=== PATIENT | female | born 1945 | race Caucasian/White ===

== ENCOUNTER 2016-12-08 05:00 | Inpatient (IN) | payer OTHER ==
--- NOTE | ~2016-12-08 | CO ---
Unit #: [id number] #: [id number] Patient: JAMAL BOWERS [id number] [facility]. [place], [place] [address] [id number] I MR#: [id number] NAME: JAMAL BOWERS ROOM: CIC3 Age: 71 Sex: F Admission Date: 12/08/2016 : 1945 Attending Physician: Mat Cabrera M.D. Primary Care Physician: Jamal Mcdowell Consultation Date: 12/08/2016 CONSULTATION REPORT REASON FOR CONSULTATION Status post arrest, respiratory failure. HISTORY OF PRESENT ILLNESS A 71-year-old female, apparent history of severe COPD and ongoing active tobacco use, was actually at [facility] in [place], admitted November 23 to November 30. Apparently, had COPD exacerbation, respiratory failure, was sent home on oxygen. Family is unavailable but from the report I get from nursing, she continued to smoke. She became more lethargic. Apparently, the family was driving her to [facility] when she quit breathing. EMS was called. Again, history is taken from the EHR but apparently, EMS took 10 minutes to arrive, 20 minutes before arriving at [facility]. Apparently, she did have a pulse upon arrival but the estimated downtime without circulation somewhere in the range of 30 minutes. At this point, she is in the intensive care unit relatively stable, off pressors, unresponsive, and has startle myoclonus. PAST MEDICAL HISTORY Remarkable for COPD. ALLERGIES No known medical allergies. HOME MEDICATIONS Per EHR: 1. Spiriva. 2. Dulera. 3. Mucinex. 4. Apparently, had been on a Medrol Dosepak and a nebulizer. FAMILY HISTORY Unavailable. SOCIAL HISTORY Unavailable. She apparently is a chronic smoker. REVIEW OF SYSTEMS Unavailable. PHYSICAL EXAMINATION GENERAL: Reveals a patient who is unresponsive. VITAL SIGNS: She is afebrile. Pulse 84, respiratory rate 18, blood pressure 122/85. Height 5 foot 3 inches, weight 108 pounds. HEENT: Pupils are small, sluggish but they do have reaction. She is Unit #: [id number] #: [id number] Patient: JAMAL BOWERS unresponsive, orally intubated. Head is atraumatic. NECK: Supple. No supraclavicular or cervical adenopathy appreciated. CHEST: Equal breath sounds. There is no wheeze, stridor, consolidation. CARDIAC: Reveals regular rate and rhythm. No pathologic murmur, rub, or gallop. ABDOMEN: Soft, nontender. No hepatomegaly, rebound. EXTREMITIES: Reveal no clubbing, cyanosis, or edema. No calf tenderness. She has some bruising on her left foot which apparently is old. She has reasonable capillary blush. Her skin is somewhat cool but no rash or diaphoresis. NEUROLOGIC: She did have some spontaneous respirations when placed on CPAP. She otherwise was unresponsive. DIAGNOSTIC STUDIES LABORATORY: Arterial blood gas: Currently pH 7.48, pCO2 of 48, pO2 of 52 on assist control 18, tidal volume of 540, 30%, 5 of PEEP. BUN is 20, creatinine 0.5. LFTs mildly elevated. BNP 53. Troponin 0.1. INR normal. White blood cell count 16.7, hemoglobin 14.9, platelet count 115,000. Sputum Gram stain: No organisms, many white cells. IMAGING: Chest x-ray: COPD, breast implants. ET tube in adequate position. No pneumonia. EKG: No acute ischemic changes. IMPRESSION 1. Status post arrest, likely secondary to her severe chronic obstructive pulmonary disease. 2. Anoxic brain injury. 3. 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 4. Underlying chronic obstructive pulmonary disease, suspect severe. 5. Apparent active tobacco use. 6. Elevated liver function tests. PLAN 1. Mechanical ventilatory support. 2. Check EEG. 3. Rule out myocardial infarction. 4. ICU prophylaxis. 5. Doubt pneumonia, so I will discontinue Levaquin. 6. I will check a urine for UA and C and S and monitor closely. 7. Overall, prognosis is grave. Hopefully, family will present and we can discuss long-term plan. Dictated by... yMnor Mcbride M.D. RUDDY/rosa TD: 12/08/2016 09:31 JOB #: [id number] CC: Jamal Mcdowell Aprn Unit #: [id number] #: [id number] Patient: JAMAL BOWERS CONSULTATION REPORT Page 1 of 1 X Mynor Mcbride MD X CONSULTATION REPORT
--- NOTE | ~2016-12-08 | CR72 ---
[facility] A Service of [facility] RADIOLOGY TEXT RESULTS PATIENT: JAMAL BOWERS LOCATION: [address] : [birth year] UNIT #: [id number] AGE: [address]: Mat Cabrera MD SEX: F ORDER DR: [id number] [facility] [address] [place], [place] [address] [id number] I MR#: [id number] Acc #: [id number] NAME: JAMAL BOWERS : 1945 SEX: F STUDY DATE/TIME: 12/08/2016 4:42 UNIT: [facility] ROOM: [facility] STUDY DESCRIPTION: CR Chest Single View Portable Attending Physician: Shameka Howe M.D. Ordering Physician: Shameka Howe M.D. Primary Care Physician: Jamal Mcdowell MEDICAL IMAGING REPORT This report is preliminary unless electronic signature is present EXAM AP portable chest 12/08/2016 HISTORY Endotracheal tube placement. Shortness of breath today. History of full cardiac arrest. COMPARISON None. FINDINGS ET tube has been placed in satisfactory position in the mid-thoracic trachea, the tip located about 4.2 cm above the rolan. NG tube extends below the diaphragm with tip not included in the field of view. Prominent skin fold artifact projects over the left hemithorax, but pulmonary parenchymal lines are seen extending distal to this. Bilateral breast implants with peripheral capsular calcification noted. Background emphysematous changes are thought to be present. Heart size within normal limits. Diminished height of thoracolumbar vertebral bodies is thought to represent compression deformities, age indeterminate. IMPRESSION 1. Emphysematous changes in the lungs without evidence of acute airspace disease. 2. Prominent skin fold artifact projects over the left lateral thorax. 3. ET tube tip in satisfactory position in mid-thoracic trachea, NG tube extends below the diaphragm. 4. Multiple thoracolumbar compression deformities, age indeterminate. No comparison studies at this institution. Dictated by... Mady Quick M.D. [facility] A Service of [facility] RADIOLOGY TEXT RESULTS PATIENT: JAMAL BOWERS LOCATION: [facility]3-18 : 45 UNIT #: [id number] AGE: [address]: Mat Cabrera MD SEX: F ORDER DR: THIS IS AN ELECTRONICALLY VERIFIED REPORT Mady Quick M.D. at 12/08/2016 9:59 PM LYLA/roxy TD: 12/08/2016 06:34 JOB #: [id number] MEDICAL IMAGING REPORT Page 1 of 1 COPY
--- NOTE | ~2016-12-08 | CO ---
Unit #: [id number] #: [id number] Patient: JAMAL BOWERS [id number] [facility] [address] [place], [place] [address] [id number] I MR#: [id number] NAME: JAMAL BOWERS ROOM: CICCU3 Age: 71 Sex: F Admission Date: 12/08/2016 : 1945 Attending Physician: Mat Cabrera M.D. Primary Care Physician: Jamal Mcdowell Requesting Physician: Shameka Howe M.D. Consultation Date: 12/08/2016 CONSULTATION REPORT REASON FOR CONSULT Anoxic encephalopathy. PATIENT IDENTIFICATION This 71-year-old female evaluated in ICU, room 18, at [place] [facility]. SOURCE OF INFORMATION Obtained from the medical record. HISTORY OF PRESENT ILLNESS This is a 71-year-old female with past medical history of COPD, who presents to [place] [facility] with resuscitated arrest/PEA downtown estimated at approximately 30 to 40 minutes prior to resuscitation. The patient apparently was recently admitted to [facility] last week for COPD exacerbation. Apparently, the day prior to admission she had become short of breath and, apparently, the family was attempting to make arrangements to take the patient to [facility], although those details are not clear. She apparently stopped breathing and EMS was called. EMS arrived within about 10 minutes. The patient was found to be in PEA and CPR was initiated. The patient was intubated en route and apparently arrived to [facility] ER about 20 minutes later. The patient did have a pulse on arrival. The patient was noted to be tachycardiac and also had an elevated WBC count. CT of the head was done at [facility] and is reported as negative for any acute findings. CT angiogram of the chest was reported as negative for pulmonary embolism and the patient was sent to [place] [facility] for further evaluation given concern for anoxic brain injury. The patient is intubated. She is not sedated. She is unresponsive and no family is available at the time of my evaluation. The patient is unable to contribute to her history or review of systems given her mental and physical status. PAST MEDICAL HISTORY COPD. SOCIAL HISTORY Unknown. FAMILY HISTORY Unknown. ALLERGIES No known drug allergies. Unit #: [id number] #: [id number] Patient: JAMAL BOWERS HOME MEDICATIONS 1. Medrol Dosepak. 2. Nebulizer. 3. Spiriva. 4. Mucinex. 5. Dulera. REVIEW OF SYSTEMS Unable to obtain from the patient given her mental and physical status. PHYSICAL EXAMINATION VITAL SIGNS: Temperature 99.6. Pulse 117. Respirations 17. Blood pressure 143/70. Oxygen saturation 98% on the ventilator. Height 5'3". Weight 108 lb. NEUROLOGICAL EXAMINATION MENTAL STATUS EXAM: The patient is intubated. She is not sedated at the time of evaluation. She has some sternal myoclonus, 0/3 eye signs. No response to noxious stimuli other than sternal myoclonus. CRANIAL NERVE EXAM: Again, eyes are conjugate. No ptosis or nystagmus but negative doll's eyes. Pupils are fixed, 2+, nonreactive. Negative corneals. I am unable to evaluate sensation of face or scalp or strength of muscles of facial expression. No asymmetry seen. I am unable to assess tongue, uvula or palate, head turning or shoulder shrug. Neck does appear to be supple. MOTOR EXAM: No response to noxious stimuli other than sternal myoclonus. No posturing seen. No withdrawal seen. SENSORY EXAM: No response to noxious stimuli. GAIT AND ROMBERG: Deferred. REFLEXES: Not elicited. TOES: No response. COORDINATION: Unable to assess. DIAGNOSTIC STUDIES Please see above. LABORATORY: CK 73, troponin 0.09. Sodium 134, potassium 4.3, chloride 94, CO2 27, glucose 221, BUN 20, creatinine 0.5, estimated GFR 97.4, calcium 8, AST 118, ALT (1) , alkaline phosphatase 94, total protein 5.9, albumin 2.9. BNP 53. WBC count 16.7, hemoglobin 14.9, hematocrit 47.1, platelet count 115. PT 11.4, INR 1.1, PTT 29.4. Initial troponin 0.11. CARDIOVASCULAR: EKG shows normal sinus rhythm, right atrial enlargement, rightward axis, pulmonary disease pattern per Cardiology report on 12/08/16. IMPRESSION 1. Anoxic encephalopathy. 2. Status post resuscitated arrest secondary to number three. 3. Severe COPD. 4. 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 5. Tobacco use. 6. Acute respiratory failure secondary to number two. PLAN Case discussed with Dr. Patel who saw the patient at the time of Unit #: [id number] #: [id number] Patient: JAMAL BOWERS consultation. We will reevaluate and discuss with family further. At this time, prognosis is concerning and appears poor given her clinical exam. I recommend repeat followup, discussion with the family regarding goals of care and consider repeat imaging if necessary. Please call for any questions or issues. We thank you very much for allowing us to assist in the care of this patient. Dictated by... Sarah Alegria A.P.R.N. for Monika Lind/phuc TD: 12/09/2016 06:54 JOB #: [id number] CONSULTATION REPORT Page 1 of 1 X Sarah Alegria [employer] X CONSULTATION REPORT
--- NOTE | ~2016-12-08 | HP ---
Unit #: [id number] #: [id number] Patient: JAMAL BOWERS [id number] [address] [address] [id number] Edmundo MR#: [id number] NAME: JAMAL BOWERS ROOM: CIC3 Age: 71 Sex: F Admission Date: 12/08/2016 : 1945 Attending Physician: Shameka Howe M.D. Primary Care Physician: Jamal Mcdowell HISTORY AND PHYSICAL CHIEF COMPLAINT Resuscitated arrest with anoxic encephalopathy. HISTORY This 71-year-old female with COPD, was transferred from [facility] emergency department after a resuscitated arrest. Family is not present, and I obtained most of the history from the ER physician at [facility]. I am told the patient was recently admitted to [facility] last week for COPD exacerbation. Yesterday, she became short of breath, and I believe the family was attempting to take the patient to [facility] but I am unsure. She stopped breathing, EMS was called. It took EMS about ten minutes to arrive. The patient was found to be in PEA. They required an additional 20 minutes before bringing the patient to [facility] ER, as they were performing CPR and intubated the patient. When the patient did arrive to [facility] ER, she did have a pulse on arrival. Therefore, down time without perfusing rhythm was estimated between 30 to 40 minutes. In the emergency department, she was noted to be tachycardic but the rest of her vital signs was negative. Workup was fairly unremarkable except for a mildly elevated white blood count. CT of the head was negative. CTA of the chest was negative for PE. It did show COPD and evidence of bronchitis. Repeat troponin was indeterminate. The patient was given IV fluids, and sent to this facility as she has evidence on examination of extensive anoxic encephalopathy. There is no neurologist at [facility]. PAST MEDICAL HISTORY COPD. ALLERGIES No known drug allergies. HOME MEDICATIONS 1. Medrol Dosepak. 2. Nebulizer. 3. Spiriva. 4. Mucinex. 5. Dulera. FAMILY HISTORY Unknown. SOCIAL HISTORY Also unknown as family is not present. Unit #: [id number] #: [id number] Patient: JAMAL BOWERS REVIEW OF SYSTEMS Impossible to obtain as patient currently is intubated, and only responds to noxious stimuli. PHYSICAL EXAMINATION GENERAL APPEARANCE: 71-year-old female who is unresponsive but does arouse to noxious stimuli with startle myoclonic jerking. VITAL SIGNS: Her O2 saturation is 92% on an FIO2 of 30%, blood pressure 137/67, pulse of 90. HEENT: Pupils are constricted, negative corneals, negative doll's. Pharynx - patient is orally intubated. There is also an NG-tube down the oropharynx with some bloody appearing aspirate. NECK: Supple. CHEST: Clear. CARDIAC: Normal S1 and S2 without murmur. ABDOMEN: Bowel sounds are diminished. Nontender. No distention. No hepatosplenomegaly or masses. EXTREMITIES: Without clubbing, cyanosis or edema. There is some bruising over the left foot. Pedal pulses are present. NEUROLOGIC: The patient is unresponsive but does arouse to noxious stimuli with startle myoclonic jerking, particularly in the face. Toes do not react. The patient is not breathing above the ventilator. No corneals, no doll's but patient's pupils are constricted. She did have a gag reflex according to the ICU nurse. DIAGNOSTIC STUDIES LABORATORY: Labs prior to arrival - hematocrit 46.8, white blood count of 13.1, MCV is 101.3. BNP is 689. Initial troponin negative. Second troponin was 0.029. D-dimer elevated. Coags normal. SMA-12 - glucose is 253, sodium 134, potassium 5.2, chloride 86, albumin is 3, AST 70, ALT 76, magnesium 2.4. Normal CPK. ABG - pH 7.24, pCO2 66.7, pO2 159, O2 saturation 99% on tidal volume 540, SIMV of 14, FIO2 40%, PEEP of 5 with pressure support of 10. IMAGING: CTA of the chest was negative for PE. COPD and changes of bronchitis noted. Gastroccult was heme positive. Head CT - no acute disease. CARDIOVASCULAR: EKG - sinus tachycardia, rate 115, right axis deviation. ASSESSMENT 1. Resuscitated arrest, likely primary pulmonary arrest with initial ABG showing mainly respiratory acidosis. 2. Anoxic encephalopathy with startle myoclonus. 3. Chronic obstructive pulmonary disease, recently admitted to [facility] last week. Will obtain records. 4. Indeterminate troponin following arrest. 5. Blood-tinged NG aspirate. 6. CTA of the chest showing COPD and bronchitis. 7. Poor data base. PLANS Unit #: [id number] #: [id number] Patient: JAMAL BOWERS 1. IV fluids. Recheck all labs. 2. Sputum C and S. 3. Proton pump inhibitor. 4. Request old records. 5. Serial cardiac enzymes. 6. Steroids, Duo-Nebs, antibiotics. 7. Pulmonary and neurology consultation. 8. SCDs for DVT prophylaxis. 9. Will speak with family when they arrive. 10. Prognosis is poor. Dictated by Shameka Howe M.D. AML/df TD: 12/08/2016 05:39 JOB #: [id number] HISTORY AND PHYSICAL Page 1 of 1 X Shameka Howe MD X HISTORY AND PHYSICAL
--- NOTE | ~2016-12-08 | EKG ---
PATIENT: KIM BOWERS UNIT #: [id number] Ventricular Rate: 86 BPM Atrial Rate: 86 BPM P-R Interval: 112 ms QRS Duration: 86 ms Q-T Interval: 356 ms QTC Calculation(Bezet): 426 ms P Cumberland: 87 degrees Calculated R Cumberland: 94 degrees Calculated T Cumberland: 70 degrees Diagnosis Line: Normal sinus rhythm Diagnosis Line: Right atrial enlargement Diagnosis Line: Rightward axis Diagnosis Line: Pulmonary disease pattern Diagnosis Line: Abnormal ECG Diagnosis Line: No previous ECGs available Diagnosis Line: Confirmed by ISIS GILES MD ([id number]) on Diagnosis Line: 12/08/2016 4:37:58 PM INTERPRETING MD: TISHA ALONZO
--- NOTE | ~2016-12-08 | HP ---
Unit #: [id number] #: [id number] Patient: JAMAL BOWERS [id number] [address] [address] [id number] I MR#: [id number] NAME: JAMAL BOWERS ROOM: [facility] Age: 71 Sex: F Admission Date: 12/08/2016 : 1945 Attending Physician: Shameka Howe M.D. Primary Care Physician: Jamal Mcdowell HISTORY AND PHYSICAL ADDENDUM Urine tox screen was negative. Critical care time spent in evaluating this patient was 35 minutes. Dictated by Shameka Howe M.D. AML/df TD: 12/08/2016 05:57 JOB #: [id number] HISTORY AND PHYSICAL Page 1 of 1 X Shameka Howe MD X HISTORY AND PHYSICAL
--- NOTE | ~2016-12-08 | EKG ---
PATIENT: KIM BOWERS UNIT #: [id number] Ventricular Rate: 143 BPM Atrial Rate: 143 BPM P-R Interval: 126 ms QRS Duration: 82 ms Q-T Interval: 278 ms QTC Calculation(Bezet): 429 ms P Raysal: 86 degrees Calculated R Raysal: 116 degrees Calculated T Raysal: 52 degrees Diagnosis Line: Sinus tachycardia with occasional Premature Diagnosis Line: ventricular complexes Diagnosis Line: Right atrial enlargement Diagnosis Line: Right axis deviation Baseline wander Diagnosis Line: Pulmonary disease pattern Diagnosis Line: Abnormal ECG Diagnosis Line: When compared with ECG of 08-DEC-2016 06:16, Diagnosis Line: Premature ventricular complexes are now Present Diagnosis Line: Vent. rate has increased BY 57 BPM Diagnosis Line: Confirmed by GABRIELA VILLARREAL MD ([id number]) on 12/09/2016 Diagnosis Line: 9:41:16 AM INTERPRETING MD: PHIL ALONZO
--- NOTE | ~2016-12-08 | A ---
[facility] Nutrition Therapy DATE: 12/08/16 Patient: KIM BOWERS Physician: CIERA Address: [address] [facility] Room/Bed: [address], Zip: [place] [address] Admit Date: 12/08/16 Date of : [birth year] Height: 5 3 Weight: 108 49 NUTRITIONAL ASSESSMENT: REASON: NPO in ICU 71 yo female admitted for cardiac arrest, anoxic injury PMH: COPD Anthropometrics: Ht: 5'3" Wt: 49.1 kg (108#) BMI: 19.2 Labs: Na+ 134, Cl- 94, Gluc 221, Creat 0.5, Ca++ 8.0, Alb 2.9, AST 118, ALT 156, POC 208 Meds: Protonix, Solu-medrol, NaCl I/O & Bowel function: 133/105, last BM 5/ (diarrhea) Skin Integrity: Scabbed intact areas (R buttock), bruising (L foot), no edema noted Estimated Nutrition Needs: 7540-6447 kcal (25-30 kcal/kg) 74-98 g protein (1.5-2.0 g/kg) Assessment: Chart reviewed, events noted. Pt had a cardiac arrest and went to [facility] ER. Pt thought to have anoxic injury so transferred to [facility]. Pt is currently intubated in ICU. Pt has a OGT on LWS. Pt has elevated blood glucose levels, with questionable family history of DM. Elevated glucose levels may also be d/t medication. Per RN, pt likely has poor prognosis. No family at bedside. See recommendations below. Dx: Inadequate oral intake RT intubation AEB NPO status. Intervention: 1. Enteral nutrition Monitoring, Evaluation and Goals: 1. Enteral nutrition; provide >80% of estimated needs and goal volume x 24 hrs 2. Weight; prevent unintentional weight loss 3. Labs; WNL Recommendations: 1. If appropriate and once medically feasible, initiate enteral nutrition with Jevity 1.5 @ 15 mL/hr + 30 mL prostat BID, advance 10 mL q 6 hrs to goal rate of 35 mL/hr + 30 mL prostat BID. This will provide: 1460 kcal/ 84 g protein/ 638 mL free H2O. [facility] Nutrition Therapy DATE: 12/08/16 Patient: KIM BOWERS Physician: CIERA Address: [address] Room/Bed: [address], Zip: [place] [address] Admit Date: 12/08/16 Date of : [birth year] Height: 5 3 Weight: 108 49 2. Recommend obtaining HgbA1c d/t elevated blood glucose levels. Pt is at a moderate-severe nutritional risk. RD will f/u per protocol. Respectfully, Daiana Mac, Software Engineering Specialist Sarah Martins, HERI, LD [employer] [facility] [employer] cc: client file
--- NOTE | ~2016-12-08 | CR72 ---
[facility] A Service of [facility] RADIOLOGY TEXT RESULTS PATIENT: JAMAL BOWERS LOCATION: [facility] : [birth year] UNIT #: [id number] AGE: [address]: Mat Cabrera MD SEX: F ORDER DR: [id number] [facility] [address] [facility]. [place], [place] [address] [id number] I MR#: [id number] Acc #: [id number] NAME: JAMAL BOWERS : 1945 SEX: F STUDY DATE/TIME: 12/09/2016 3:13 UNIT: [facility] ROOM: [facility] STUDY DESCRIPTION: CR Chest Single View Portable Attending Physician: Mat Cabrera M.D. Ordering Physician: Mynor Mcbride M.D. Primary Care Physician: Jamal Mcdowell MEDICAL IMAGING REPORT This report is preliminary unless electronic signature is present EXAM AP portable chest. DATE 12/09/2016 at 0313 HISTORY Status post arrest, respiratory failure, on ventilator, COPD. Symptoms began 12/08/2016. COMPARISON AP portable chest, 12/08/2016. FINDINGS ET tube, NG tube appear stable. No pneumothorax is seen. Emphysematous changes are present. No definite acute airspace disease is identified. Peripherally calcified bilateral breast implants partially obscure the lung bases. No pleural effusion or pneumothorax is evident. Heart size is stable. Thoracolumbar compression deformities are suspected. IMPRESSION 1. Emphysematous changes but no definite acute airspace disease. 2. Supporting lines and tubes appear stable. No visible pneumothorax. Dictated by... Mady Quick M.D. THIS IS AN ELECTRONICALLY VERIFIED REPORT Mady Quick M.D. at 12/09/2016 10:05 PM [facility] A Service [facility] RADIOLOGY TEXT RESULTS PATIENT: JAMAL BOWERS LOCATION: [facility] : [birth year] UNIT #: [id number] AGE: [address]: Mat Cabrera MD SEX: F ORDER DR: LYLA/lee TD: 12/09/2016 09:50 JOB #: [id number] MEDICAL IMAGING REPORT Page 1 of 1 COPY
--- NOTE | ~2016-12-08 | DS ---
Unit #: [id number] #: [id number] Patient: JAMAL BOWERS [id number] [facility] [address] [facility]. [place], [place] [address] [id number] MR#: [id number] NAME: JAMAL BOWERS ROOM: [facility] Age: 71 Sex: F Admission Date: 12/08/2016 : 1945 Discharge Date: 12/09/2016 Attending Physician: Mat Cabrera M.D. Primary Care Physician: Jamal Mcdowlel DISCHARGE SUMMARY SUMMARY DATE OF December 09, 2016 at 1533. REASON FOR ADMISSION Resuscitated arrest with resultant anoxic encephalopathy. HISTORY OF PRESENT ILLNESS/HOSPITAL COURSE Please see H and P for complete details. The patient was subsequently transferred to [facility]. She was placed on vent support. Consultations were placed to wardrobe supervisor. Dr. Mcbride and associates continued to follow the patient as well as Dr. Patel in regard to anoxic encephalopathy. Patient did not require any sedation through her hospital course. She had minimal gag reflex. She had no reflexes. No withdrawal to pain. She was not responsive. Pupils remained constricted throughout hospital course. Ultimately, patient's prognosis was dismal secondary to her prolonged time that she was down. On December 09, 2016, after the patient's was apprised of the overall prognosis which was dismal, he requested to withdraw care and subsequently patient's care was withdrawn. She breathed several times, perhaps one to two times, and she subsequently after ventilator was discontinued. Overall and unfortunately her prognosis was very poor from the outset and the patient's was very well aware initially. FINAL REASON FOR 1. Anoxic encephalopathy with downtown approximately 30-45 minutes. 2. Status post resuscitated arrest. 3. Prior history of end-stage chronic obstructive pulmonary disease. 4. Acute hypoxic respiratory failure. Dictated by... Mat Cabrera M.D. PEDRO PABLO/rosa TD: 12/12/2016 09:40 Unit #: [id number] #: [id number] Patient: JAMAL BOWERS JOB #: [id number] DISCHARGE SUMMARY Page 1 of 1 X Mat Cabrera MD DISCHARGE SUMMARY
--- NOTE | ~2016-12-08 | EE ---
Unit #: [id number] #: [id number] Patient: KIM BOWERS [id number] [address] [address] [id number] MR#: [id number] NAME: KIM BOWERS : 1945 SEX: F STUDY DATE/TIME: 12/08/2016 UNIT: [facility] ROOM: [facility] STUDY DESCRIPTION: EEG Attending Physician: Mat Cabrera M.D. Referring Physician: Mat Cabrera M.D. NEURODIAGNOSTICS REPORT EXAM EEG. REASON FOR THE STUDY Cardiac arrest, jerking activity, rule out seizures or status. EEG DESCRIPTION This is an inpatient, portable, digitally recorded, multi montage adult EEG with leads placed according to the International 10/20 System. Hyperventilation and photic stimulation were not done. This EEG was of very low amplitude, almost flat. There was some muscle activity and later on sedation was given and it showed some burst suppression pattern with suppression lasting sometimes more than eight seconds. Nothing suggesting reactivity. Nothing suggesting interictal discharges or clinical events. Hyperventilation and photic stimulation were not done. IMPRESSION Abnormal EEG showing burst suppression-type pattern. It could be seen with metabolic causes, anoxia, hypoxia, or medications. Nothing suggesting seizure or status, so clinical correlation is recommended. Dictated by... Monika Lind/jada TD: 12/09/2016 21:52 JOB #: [id number] NEURODIAGNOSTICS REPORT Page 1 of 1 X Indigo Patel MD NEURODIAGNOSTICS REPORT
[2016-12-08 05:08] LABS: ARTERIAL BLOOD GAS CARBOXY HB 0.9 %sat (0.0-9.0); ARTERIAL BLOOD GAS HCO3 35.5 mmol/L; ARTERIAL BLOOD GAS MET HB 0.7 %sat (0.0-2.0); ARTERIAL BLOOD GAS PCO2 47.6 mmHg (35.0-45.0); ARTERIAL BLOOD GAS pH 7.481 (7.350-7.450)
[2016-12-08 05:09] LABS: ARTERIAL BLOOD GAS ALLEN TEST NORMAL; ARTERIAL BLOOD GAS ART SITE RIGHT RADIAL; ARTERIAL BLOOD GAS DELIVERY VENT; ARTERIAL BLOOD GAS PO2 52.5 mmHg (80.0-100); ARTERIAL BLOOD GAS VENT MODE AC; ARTERIAL DRAW? YES
[2016-12-08 05:34] LABS: BASOPHIL# 0.1 X10e3 (0-0.3); BASOPHIL% 0.4 % (0-2.5); HEMATOCRIT 47.1 % (35.0-45.0); HEMOGLOBIN 14.9 gm/dL (12.0-16.0); LYMPHOCYTE# 0.3 X10e3 (1.0-3.5); LYMPHOCYTE% 1.6 % (17.0-45.0); MEAN CELL VOLUME 92.8 FL (83-96); MEAN CORPUSCULAR HEMOGLOBIN 29.3 PG (28-34); MEAN CORPUSCULAR HGB CONC 31.6 g/dL (30-36); MEAN PLATELET VOLUME 9.3 FL (6.5-11.5); MONOCYTE# 0.8 X10e3 (0-1.0); MONOCYTE% 4.7 % (3.0-12.0); NEUTROPHIL# 15.6 X10e3 (1.5-7.1); NEUTROPHIL% 93.3 % (40-75); PLATELET COUNT 115 X10e3 (140-420); RED BLOOD COUNT 5.07 X10e (3.90-5.30); RED CELL DISTRIBUTION WIDTH 14.8 % (11.0-15.5); WHITE BLOOD COUNT 16.7 X10e3 (4.0-10.5)
[2016-12-08 05:36] LABS: DIFF IND YES
[2016-12-08 05:49] LABS: INR 1.1; PARTIAL THROMBOPLASTIN TIME 29.4 SECONDS (23.5-31.3); PROTHROMBIN TIME (PATIENT) 11.4 SECONDS (9.6-11.5)
[2016-12-08 05:57] LABS: ANISOCYTOSIS SL; PLATELET ESTIMATE DECREASED (NORMAL)
[2016-12-08 05:58] LABS: ALBUMIN SERUM 2.9 g/dL (3.5-5.0); BILIRUBIN,TOTAL 0.6 mg/dL (0.2-2.0); CREATININE SERUM 0.5 mg/dL (0.6-1.4); GLOM FILT RATE Estimated 97.4 mL/min (>60); POTASSIUM 4.3 mmol/L (3.5-5.1); PROTEIN TOTAL SERUM 5.9 g/dL (6.0-8.3)
[2016-12-08 06:19] LABS: %MB 8.7 % (0.0-4.0); MB 6.9 ng/ml
[2016-12-08 13:19] LABS: MB 4.4 ng/ml
[2016-12-08 14:42] LABS: URINE APPEARANCE CLEAR; URINE BILIRUBIN NEG (NEG); URINE BLOOD 3+ (NEG); URINE COLOR DK YELLOW; URINE GLUCOSE NEG (NEG); URINE KETONE TRACE (NEG); URINE LEUKOCYTE ESTERASE TRACE (NEG); URINE NITRATE NEG (NEG); URINE PROTEIN 2+ (NEG); URINE SPECIFIC GRAVITY 1.037 (1.003-1.035)
[2016-12-08 14:44] LABS: URBCS1 AUWI 100-200 /[HPF] (0-2); URINE BACTERIA AUWI NEG (NEGATIVE); URINE SQUAMOUS EPITHELIAL CELL FEW /[HPF]
[2016-12-09 04:33] LABS: ARTERIAL BLD GAS O2 SATURATION 96.4 % (90.0-100.0); ARTERIAL BLOOD GAS CARBOXY HB 0.6 %sat (0.0-9.0); ARTERIAL BLOOD GAS HCO3 30.3 mmol/L; ARTERIAL BLOOD GAS PCO2 47.8 mmHg (35.0-45.0); ARTERIAL BLOOD GAS PO2 94.7 mmHg (80.0-100); ARTERIAL BLOOD GAS pH 7.411 (7.350-7.450)
[2016-12-09 04:36] LABS: ARTERIAL BLOOD GAS ALLEN TEST NORMAL; ARTERIAL BLOOD GAS ART SITE RIGHT RADIAL; ARTERIAL BLOOD GAS DELIVERY VENT; ARTERIAL BLOOD GAS VENT MODE AC; ARTERIAL DRAW? YES
[2016-12-09 05:52] LABS: BASOPHIL% 0.1 % (0-2.5); HEMATOCRIT 40.5 % (35.0-45.0); LYMPHOCYTE# 0.4 X10e3 (1.0-3.5); LYMPHOCYTE% 3.2 % (17.0-45.0); MEAN CELL VOLUME 92.3 FL (83-96); MEAN CORPUSCULAR HEMOGLOBIN 29.2 PG (28-34); MEAN CORPUSCULAR HGB CONC 31.7 g/dL (30-36); MEAN PLATELET VOLUME 10.1 FL (6.5-11.5); MONOCYTE# 0.8 X10e3 (0-1.0); MONOCYTE% 5.9 % (3.0-12.0); NEUTROPHIL# 11.6 X10e3 (1.5-7.1); NEUTROPHIL% 90.8 % (40-75); RED BLOOD COUNT 4.39 X10e (3.90-5.30); RED CELL DISTRIBUTION WIDTH 15.1 % (11.0-15.5); WHITE BLOOD COUNT 12.7 X10e3 (4.0-10.5)
[2016-12-09 05:56] LABS: ALBUMIN SERUM 2.6 g/dL (3.5-5.0); BILIRUBIN,TOTAL 0.2 mg/dL (0.2-2.0); CALCIUM SERUM 7.9 mg/dL (8.4-10.2); CREATININE SERUM 0.5 mg/dL (0.6-1.4); GLOM FILT RATE Estimated 97.4 mL/min (>60); MAGNESIUM 1.7 mg/dL (1.6-3.0); PHOSPHOROUS 1.9 mg/dL (2.5-4.6); POTASSIUM 3.7 mmol/L (3.5-5.1); PROTEIN TOTAL SERUM 5.5 g/dL (6.0-8.3)
[2016-12-09 06:18] LABS: %MB 2.7 % (0.0-4.0)
[2016-12-09 06:22] LABS: HEMOGLOBIN 12.8 gm/dL (12.0-16.0)
[2016-12-09 06:23] LABS: DIFF IND YES; PLATELET COUNT 99 X10e3 (140-420)
[2016-12-09 06:37] LABS: ANISOCYTOSIS SL; PLATELET ESTIMATE DECREASED (NORMAL)
== END 2016-12-09 15:33 | disposition expired | DRG 208 ==
LOC: CICCU3 05:00
PROVIDERS: Internal Medicine
PROC: 5A1945Z Respiratory Ventilation, 24-96 Consecutive Hours (ICD-10-PCS; principal; 2016-12-08)
PROC: 0BH17EZ Insertion of Endotracheal Airway into Trachea, Via Natural or Artificial Opening (ICD-10-PCS; 2016-12-08)
DX: J96.21 Acute and chronic respiratory failure with hypoxia (principal); R40.20 Unspecified coma; G93.1 Anoxic brain damage, not elsewhere classified; R56.9 Unspecified convulsions; Z68.1 Body mass index [BMI] 19.9 or less, adult; J96.22 Acute and chronic respiratory failure with hypercapnia; F17.210 Nicotine dependence, cigarettes, uncomplicated; J44.9 Chronic obstructive pulmonary disease, unspecified; R79.89 Other specified abnormal findings of blood chemistry; G25.3 Myoclonus; R94.5 Abnormal results of liver function studies
CPT/HCPCS: 36600; 71010; 80053; 81003; 82550; 82553; 82803; 82947; 83735; 83880; 84100; 84484; 85025; 85610; 85730; 87070; 87086; 87205; 93005; 94002; 94003; 94640; 94761; 95816; C9113; J1650; J1956; J2060; J2270; J2920; J3475; J3490